=== PATIENT | female | born 2000 | race Caucasian/White ===

== ENCOUNTER 2025-01-19 18:14 | Observation (INO) | payer OTHER ==
[2025-01-19] MEDS ORDERED: ACETAMINOPHEN INJECTION 100 ML ONE (18:56)
[2025-01-19] MEDS: SODIUM CHLORIDE 0.9% 500 ML INFUS.BAG IV ONE ×2 (19:01→22:44)
[2025-01-19] MEDS: ACETAMINOPHEN 1000 MG/100 ML BAG IVPB ONE (19:01)
[2025-01-19 19:25] LABS: ABSOLUTE IMMATURE GRANULOCYTES 0.06 x10^3/uL (0.0-0.031); BASOPHILS # 0.02 x10^3/uL (0.01-0.08); HEMATOCRIT 39.1 % (34.1-44.9); HEMOGLOBIN 12.9 g/dL (11.2-15.7); MEAN CELL VOLUME 84.3 fl (79.4-94.8); MEAN PLT VOLUME 10.6 fl (9.4-12.3); MONOCYTE # 0.37 x10^3/uL (0.24-0.86); MONOCYTE % 4.6 % (4.7-12.5); PLATELET COUNT 165 x10^3/uL (182-369); RDW 12.3 % (12.1-16.5)
[2025-01-19 19:29] LABS: VENOUS BASE EXCESS 0.2 mmol/L (-2-2); VENOUS PCO2 36.1 mmHg (38-52); VENOUS PH 7.441 (7.310-7.410)
[2025-01-19 19:47] LABS: POTASSIUM 3.5 mmol/L (3.5-5.1)
[2025-01-19 19:48] LABS: CALCIUM 8.8 mg/dL (8.5-10.1)
[2025-01-19 19:49] LABS: ALBUMIN 3.7 g/dl (3.4-5.0); BLOOD UREA NITROGEN 5.2 mg/dL (7-18)
[2025-01-19 19:52] LABS: CREATININE 0.8 mg/dL (0.55-1.3)
[2025-01-19 19:54] LABS: BILIRUBIN,TOTAL 0.8 mg/dL (0.2-1); TOT PROT 7.3 g/dl (6.4-8.2)
[2025-01-19] MEDS ORDERED: IBUPROFEN 600 MG TABLET (FP) PO ONE (20:09)
[2025-01-19] MEDS: IBUPROFEN 600 MG TABLET (FP) PO ONE (20:09)
[2025-01-19] MEDS: CEFTRIAXONE 1 GM in DEXTROSE 5%-WATER - 50 ML IVPB ONE (21:11)
[2025-01-19] MEDS ORDERED: CEFTRIAXONE 1 G/50 ML PREMIX 50 ML IVPB ONE (21:11)
[2025-01-19] MEDS ORDERED: AZITHROMYCIN IVPB 500 MG/250 ML BAG IVPB ONE (21:16)
[2025-01-19] MEDS: AZITHROMYCIN IVPB 500 MG in DEXTROSE 5%-WATER - 250 ML IVPB ONE (21:18)
[2025-01-19 21:24] LABS: EPI CELLS >36 /uL (0-25.1); HYALINE CASTS 2 /uL (0-3.1); PH,URINE 6.5 (5.0-8.0); URINE APPEARANCE CLOUDY; URINE BACTERIA >9,000 /uL (0-1359); URINE BILIRUBIN NEGATIVE (NEGATIVE); URINE COLOR YELLOW; URINE GLUCOSE (UA) NEGATIVE (NEGATIVE); URINE KETONE 1+ (NEGATIVE); URINE LEUK ESTERASE NEGATIVE (NEGATIVE); URINE NITRITE POSITIVE (NEGATIVE); URINE PROTEIN 2+ (NEGATIVE); URINE RBC 49 /uL (0-23.9)
[2025-01-19 21:56] LABS: URINE WBC 181.4 /uL (0-25.8)
[2025-01-19] MEDS: SODIUM CHLORIDE 1,000 ML IV STA (23:45)
[2025-01-19] MEDS ORDERED: ALBUTEROL SO4 0.083% IH SOL 2.5 MG/3 ML VIAL.NEB. NEB PRN (23:54)
[2025-01-20 00:56] VITALS: BMI 25.0
[2025-01-20] MEDS ORDERED: SODIUM CHLORIDE 1,000 ML IV SCH (02:00)
[2025-01-20] MEDS: SODIUM CHLORIDE 1,000 ML IV SCH (05:45)
[2025-01-20 08:13] LABS: ABSOLUTE IMMATURE GRANULOCYTES 0.02 x10^3/uL (0.0-0.031); BASOPHILS # 0.01 x10^3/uL (0.01-0.08); HEMATOCRIT 33.1 % (34.1-44.9); MCHC 33.2 g/dl (32.2-35.5); MEAN CELL VOLUME 85.5 fl (79.4-94.8); MEAN PLT VOLUME 10.5 fl (9.4-12.3); MONOCYTE # 0.41 x10^3/uL (0.24-0.86); MONOCYTE % 6.7 % (4.7-12.5); PLATELET COUNT 132 x10^3/uL (182-369); RDW 12.7 % (12.1-16.5)
[2025-01-20 08:42] LABS: BILIRUBIN,TOTAL 0.4 mg/dL (0.2-1)
[2025-01-20 08:43] LABS: ALBUMIN 2.7 g/dl (3.4-5.0); TOT PROT 5.5 g/dl (6.4-8.2)
[2025-01-20 08:44] LABS: CALCIUM 7.6 mg/dL (8.5-10.1); CREATININE 0.5 mg/dL (0.55-1.3); MAGNESIUM 1.9 mg/dL (1.8-2.4)
[2025-01-20] MEDS: POTASSIUM CHLORIDE TABS 20 MEQ TABLET.ER (FP) PO ONE (09:16)
[2025-01-20] MEDS: ENOXAPARIN NA (PORCINE) 40 MG/0.4 ML DISP.SYRIN SQ SCH (09:16)
[2025-01-20] MEDS: CEFTRIAXONE 1 G/50 ML PREMIX 50 ML IVPB SCH (09:17)
[2025-01-20] MEDS: OSELTAMIVIR PHOSPHATE 75 MG CAPSULE PO SCH (09:17)
[2025-01-20] MEDS: guaiFENesin/D-METHORPHAN TAB.ER.12H PO SCH (09:19)
[2025-01-20] MEDS: DOXYCYCLINE INJECTION 100 MG in DEXTROSE 5%-WATER 100 ML IVPB SCH (10:42)
[2025-01-21] MEDS: CEFTRIAXONE 2 GM-D5W BAG 2 GM/50 ML BAG IVPB SCH (09:47)
[2025-01-21] MEDS: AZITHROMYCIN IVPB 500 MG/250 ML BAG IVPB SCH (10:24)
[2025-01-21 12:41] VITALS: BP 125/89; PULSE 79; RESP 18; TEMP 97.9
== END 2025-01-21 11:10 | disposition home or self-care (01) ==
LOC: JER 18:14 → JERBED 21:22 → J7W 23:45
PROVIDERS: ADMIT Hospitalist
PROC: 3E03329 Introduction of Other Anti-infective into Peripheral Vein, Percutaneous Approach (ICD-10-PCS; principal; 2025-01-19)
PROC: 3E033NZ Introduction of Analgesics, Hypnotics, Sedatives into Peripheral Vein, Percutaneous Approach (ICD-10-PCS; 2025-01-19)
PROC: 3E033GC Introduction of Other Therapeutic Substance into Peripheral Vein, Percutaneous Approach (ICD-10-PCS; 2025-01-19)
PROC: 3E0337Z Introduction of Electrolytic and Water Balance Substance into Peripheral Vein, Percutaneous Approach (ICD-10-PCS; 2025-01-19)
DX: J10.08 Influenza due to other identified influenza virus with other specified pneumonia (principal); J18.8 Other pneumonia, unspecified organism; A41.9 Sepsis, unspecified organism; K76.9 Liver disease, unspecified
CPT/HCPCS: 0241U-QW; 36415; 71045-TC-FY; 71250-TC; 80053; 81003; 82803; 82962; 83605; 83735; 84100; 84484; 84703; 85025; 87040; 87070; 87086; 87186; 87205; 87651; 93005; 93010; 96365; 96367; 96368; 96375; 99285-25; G0378; J0131